=== PATIENT | male | born 1990 | race Caucasian/White ===

== ENCOUNTER → 2017-02-10 | Outpatient (CLI) | payer OTHER ==
[2017-02-10 13:38] LABS: HIV 1&2 ANTIBODY SCREEN Nonreactive (Nonreactive); HIV-1 p24 ANTIGEN Nonreactive (Nonreactive)
[2017-02-11 05:07] LABS: HSV 1 IGG TYPE SPECIFIC <0.91 index (0.00-0.90); HSV 2 IGG TYPE SPECIFIC <0.91 index (0.00-0.90)
== END | disposition home or self-care (01) ==
LOC: LAB 08:59
PROVIDERS: ATTEND Family Medicine
DX: Z11.3 Encounter for screening for infections with a predominantly sexual mode of transmission (principal)
CPT/HCPCS: 81003; 86592; 86694; 86695; 86696; 86703; 87086; 87491; 87591; 87899; G0435

== ENCOUNTER → 2018-05-15 | Outpatient (CLI) | payer OTHER | END | disposition home or self-care (01) | LOC: CFH 07:18 | PROVIDERS: ATTEND Nurse Practitioner Family | DX: G95.0 Syringomyelia and syringobulbia (principal); M51.24 Other intervertebral disc displacement, thoracic region; M79.2 Neuralgia and neuritis, unspecified | CPT/HCPCS: 72146 ==